=== PATIENT | male | born 1970 | race Caucasian/White ===

== ENCOUNTER → 2021-01-21 | Outpatient (CLI) | payer OTHER ==
--- NOTE | 2021-01-21 12:15 | RAD ---
EXAM: ULTRASOUND ABDOMEN LIMITED CLINICAL HISTORY: Reason: ELEVATED LFT'S / Spl. Instructions: / History: COMPARISON: None available. TECHNIQUE: Limited ultrasound examination of the right upper quadrant of the abdomen was performed. FINDINGS: The head and body of the pancreas are unremarkable. The tail is obscured by intestinal gas.. Liver: 19.1 cm in length. Increased hepatic echogenicity relative to the right kidney consistent wi th hepatic steatosis.. There are no focal liver lesions. Flow seen within the portal veins. Portal vein is prominent measuring 1.8 cm Biliary: No cholelithiasis. No wall thickening or pericholecystic fluid. There is no pain with dire ct transducer pressure over the gallbladder. Common bile duct measures 0.2 cm. Right Kidney: 11.7 cm in bipolar length. Normal renal cortical echotexture and thickness. No focal re nal lesion, shadowing renal calculus or hydronephrosis. Visualized portions of the abdominal aorta and inferior vena cava are unremarkable. There is no free fluid in the subhepatic space. IMPRESSION: 1. Hepatomegaly. Fatty liver. 2. Gallbladder is normal in appearance. 3. Prominence of main portal vein is incidentally seen Electronically signed by: Hiram Dunn MD (01/21/2021 12:13 PM) [id number]
== END ==
LOC: US 07:52
PROVIDERS: ATTEND Internal Medicine Gastroenterology
DX: R16.0 Hepatomegaly, not elsewhere classified (principal)
CPT/HCPCS: 76705